=== PATIENT | female | born 1970 | race Caucasian/White ===

== ENCOUNTER 2023-10-21 18:59 | Emergency (ER) | payer BC, SELFPAY ==
[2023-10-21 19:22] VITALS: BP 161/110
[2023-10-21 20:08] VITALS: BP 131/89
[2023-10-21 20:13] LABS: Lactic Acid 2.2 mmol/L (0.7-2.0)
[2023-10-21] MEDS: NSS 1000 IV (20:30)
[2023-10-21 20:35] LABS: % Basophils 0.4 % (0-2); % Eosinophils 11.3 % (0-6); % Immature Granulocytes 0.3 % (0-0.5); % Lymphocytes 23.6 % (20.5-51.1); % Monocytes 8.4 % (1.7-9.3); Absolute Basophils 0.1 10^3/uL (0-0.2); Absolute Eosinophils 1.4 10^3/uL (0-0.7); Absolute Monocytes 1.1 10^3/uL (0.1-0.6); Absolute Neutrophils 7.1 10^3/uL (1.4-6.5); Hematocrit 46.9 % (37.0-47.0); Hemoglobin 15.9 g/dL (12.0-16.0); Mean Corp Hgb Conc. 33.9 g/dL (33.0-37.0); Mean Corpuscular Hgb 28.5 pg (27.0-31.0); Mean Corpuscular Volume 84.2 fL (81.0-99.0); Mean Platelet Volume 9.1 fL (7.4-10.4); Nucleated Red Blood Cells % 0 %; Platelet Count 270 10^3/uL (130-400); Red Blood Cell Count 5.57 10^6/uL (4.20-5.40); Red Cell Dist. Width 12.5 % (11.5-14.5); White Blood Cell Count 12.8 10^3/uL (4.8-10.8)
[2023-10-21 20:52] LABS: ALT (SGPT) 36 U/L (0-35); AST (SGOT) 33 U/L (14-36); Alkaline Phosphatase 123 U/L (38-126); Blood Urea Nitrogen 11 mg/dl (7-17); Calcium 9.5 mg/dl (8.4-10.2); Carbon Dioxide 22 mmol/L (22-30); Chloride 99 mmol/L (98-107); Glucose 189 mg/dl (70-99); Potassium 4.2 mmol/L (3.5-5.1); Sodium 133 mmol/L (135-145); Total Bilirubin 1.3 mg/dl (0.2-1.3); Total Protein 7.7 g/dl (6.3-8.2); eGFR > 60.00
[2023-10-21 21:00] VITALS: BP 143/116
[2023-10-21 22:00] VITALS: BP 126/63
[2023-10-21 22:19] LABS: Urine Albumin Negative (Neg - Trace); Urine Bilirubin Negative (Negative); Urine Character Clear (Clear); Urine Color Yellow; Urine Glucose Negative (Negative); Urine Ketone Negative (Negative); Urine Leukocyte 1+ (Negative); Urine Nitrite Negative (Negative); Urine Occult Blood Negative (Negative); Urine Specific Gravity 1.015 (<1.030); Urine Urobilinogen Negative (Neg - 1+)
[2023-10-21 22:25] LABS: Urine Squamous Cell >30 /LPF (Few)
[2023-10-21 22:26] LABS: Urine White Cell 40-50 /HPF (0-5)
[2023-10-21 22:27] LABS: Urine Bacteria Few (Negative); Urine Red Blood Cell None Seen /HPF (0-2); Urine Yeast Few (Negative)
[2023-10-21] MEDS: ZOFRAN 4 MG IV (23:18)
--- NOTE | 2023-10-21 23:21 | ED.GENMED ---
History of Present Illness
General
Chief Complaint: Abdominal Symptoms
Source: patient
Exam Limitations: none
Time Seen by Provider: 10/21/23 20:01
Nursing documentation reviewed up to this point in time: agreed with
Travel History
Have you had any contact with someone who has COVID-19?: No
Do you have any symptoms of coronavirus? Fever > 100 degrees, chills, cough, shortness of breath, sore throat, loss of taste or smell, muscle aches, or headache?: No
History of Present Illness
History of Present Illness:
53-year-old female with history of hypertension, hyperlipidemia, diabetes who presents to the emergency department for evaluation of diarrhea, nausea, vomiting, abdominal discomfort. Patient reports that for the past 3 weeks she has had issues with
unsettled stomach and significant gas. She has had scattered episodes of nausea and vomiting that she reports 3 total episodes over the past 3 weeks. She says that over the past 48 hours she has developed crampy abdominal pain and diarrhea. No
blood in the vomitus or diarrhea. She has not had any fevers or chills. She has not had any urinary symptoms. She says her blood sugars are reasonably well-controlled sugars today were roughly 160. She denies any prior surgical history.
Past History
Past History
ED Past Medical History: HTN, Hypercholesterolemia and NIDDM
ED Past Surgical History: Cardiac (Cardiac cath), Orthopedic and Urological (Lithotripsy)
Review of Systems
Review of Systems
All Other Systems: ROS reviewed and negative except as documented in HPI and ROS
Constitutional: Denies fever or chills
EENT: Denies sore throat or runny nose
Respiratory: Denies cough or trouble breathing
Cardiac: Denies chest pain
ABD/GI: Reports abdominal pain, nausea, vomiting and diarrhea; Denies constipated or bloody stools
: Denies dysuria, frequency, flank pain or bleeding
Musculoskeletal: Denies neck pain or back pain
Neurological: Denies headache, weakness or numbness
Phy Exam
Physical Exam
Physical Exam:
General: Awake, alert, oriented x3; no acute distress
Head: Normocephalic, atraumatic
Eyes: Conjunctiva normal, sclera anicteric
Throat: Airway intact, mucous membranes slightly dry
Neck: Trachea midline, supple without meningismus
Lungs: Clear to auscultation bilaterally, no wheezing, rales, rhonchi
Heart: Tachycardia with regular rhythm, no murmurs, gallops, or rubs
Abd: Soft, non distended, mildly tender across the upper abdomen
Back: No CVA tenderness
Neuro: Cranial nerves grossly intact, speech fluid
Skin: no rash
Extremities: No edema in extremities, equal pulses in all extremities
Scores
Heart Failure Risk
Heart Failure Risk Score: Not Applicable
Heart Score for Chest Pain Patients
STEMI patient?: Not applicable
Withdrawal Assessment of Alcohol
Withdrawal Assessment Completed?: Not applicable
Course
Orders/Labs/Results
Orders:
Orders
10/21/23 19:31
Electrocardiogram (*1) Urgent
Reason for Study: Tachycardia
Cardiology Consult: Mikhail Mccarthy
10/21/23 19:32
EKG- Treatment ONCE
10/21/23 19:49
Lactic Acid Urgent
10/21/23 20:05
0.9% Sodium Chloride 1000 ml [Nss] 1,000 ml IV BOLUS
10/21/23 20:27
Complete Blood Count/With Diff Urgent
Comprehensive Metabolic Panel Urgent
Lipase Urgent
Comment: ADD ON
10/21/23 21:32
CT Abd/pelvis W Iv Cont Urgent
Comment:
Reason For Exam: upper abd pain, N/V; now diarrhea
10/21/23 22:09
Urinalysis Reflex To Culture Urgent
Date Specimen was Collected: 10/21/23
Time Specimen was Collected: 19:32
Urine Microscopic Reflex Cult Urgent
Urine Culture Urgent
IRAIDA Source: U
Specimen Description:
Date Specimen was Collected: 10/21/23
Time Specimen was Collected: 19:32
10/21/23 23:08
Ondansetron Injectable [Zofran] 4 mg IV NOW STA
10/21/23 23:25
Add On- LAB Urgent
Tests Added?: lipase
Abnormal Lab Results
10/21/23 10/21/23 10/21/23
19:49 20:27 22:09
WBC 12.8 H 10^3/uL
(4.8-10.8)
RBC 5.57 H 10^6/uL
(4.20-5.40)
Absolute Neuts (auto) 7.1 H 10^3/uL
(1.4-6.5)
Absolute Monos (auto) 1.1 H 10^3/uL
(0.1-0.6)
Absolute Eos (auto) 1.4 H 10^3/uL
(0-0.7)
Eosinophils % 11.3 H %
(0-6)
Sodium 133 L mmol/L
(135-145)
Glucose 189 H mg/dl
(70-99)
Lactic Acid 2.2 H mmol/L
(0.7-2.0)
ALT 36 H U/L
(0-35)
Leukocyte Esterase Rfl 1+ A
(Negative)
Urine WBC (Reflex) 40-50 A /HPF
(0-5)
Urine Bacteria (Reflex) Few A
(Negative)
Urine Yeast Few A
(Negative)
10/21/23 20:27
10/21/23 20:27
Vital Signs
Initial and Last Documented VS:
Initial Vital Signs
Temp Pulse Resp BP Pulse Ox
37.2 C 129 20 161/110 95
10/21/23 19:22 10/21/23 19:22 10/21/23 19:22 10/21/23 19:22 10/21/23 19:22
Last Documented Vital Signs
Temp Pulse Resp BP Pulse Ox
37.2 C 88 17 126/63 88
10/21/23 19:22 10/22/23 00:15 10/22/23 00:15 10/21/23 22:00 10/22/23 00:15
MDM/Problems Addressed
Differential Diagnosis Includes:
Cholelithiasis, cholecystitis, enteritis, gastritis, gastroparesis, colitis
MDM/Problems Addressed:
53-year-old female with history as documented presents for subacute gas/vomiting x 3 weeks and acute diarrheal illness with abdominal cramping over the past 48 hours. She is hypertensive and tachycardic here. Physical exam as above. Plan to place
an IV check labs including a CBC and a CMP, lipase. Will check urinalysis. Will send for CT of the abdomen pelvis. Provide some IV fluids and antiemetic. Monitor closely reassess after the above.
Labs reviewed: CBC shows slight leukocytosis to 12.8. CMP no clinically significant abnormalities. Urinalysis shows some bacteria and pyuria but many squamous cells suggesting contamination�she has no urinary symptoms lower suspicion that she has
true infection. CT of the abdomen pelvis shows nonspecific air-fluid levels consistent with a gastroenteritis which certainly would fit clinically with her abdominal cramping and diarrhea over the past 48 hours. She is feeling bit better after
fluids and Zofran. She also has questionable sludge versus tiny gallstones in the gallbladder and I wonder if these might account for her subacute nausea and bloating. She has nothing to suggest cholecystitis and her liver function tests are
unremarkable here. I think at this point she is stable for discharge advised to drink plenty of fluids, Pepto-Bismol as needed for GI upset/diarrhea will prescribe Zofran as well. Will have her follow-up with general surgery and gastroenterology
as an outpatient. She feels comfortable with this plan. Spoke about return precautions all questions answered.
Chronic conditions affecting care:
Diabetes
Acute Exacerbation and/or Progression of Chronic Illness:
Acutely hypertensive�resolved but no emergent antihypertensive therapy indicated at present
*Radiology
Radiology exam reviewed: radiology read reviewed (IMPRESSION: Mildly limited by motion artifact. Air-fluid levels in the small bowel and colon, can be seen with gastroenteritis. No evidence for bowel obstruction or free air. No signs of jayesh
colitis. Appendix is normal. Subtle dependent density in the gallbladder suggests possibility of sludge)
*Pulse Oximetry
Patient hypoxic: no
*Critical Care Note
Total Time (30-74mins, 75-104mins- exclusive of procedures): Not Applicable
Data Reviewed
Review of Other/Old Records Reveals: Labs and Records
Source: patient
ED Attending Note
-
Portions of this chart may have been created with voice recognition software.� Occasional wrong word or��sound alike� substitutions may have occurred due to the inherent limitations of voice recognition software.
Discharge Plan
Departure
Discharge Problem:
Dehydration, Cholelithiasis, Gastroenteritis
Instructions: [place] Diet, Nausea and Vomiting, Adult (DC), Gallstones ED
Prescriptions:
New
ondansetron 4 mg tablet,disintegrating
4 mg PO TIDPRN PRN (Reason: nausea/vomiting) Qty: 20 0RF
No Action
metformin 500 mg Tablet
1,000 mg PO BID@0800,1700
aspirin [Jacey Low Dose Aspirin] 81 mg Tablet,Delayed Release (Dr/Ec)
81 mg PO DAILY
multivitamin Tablet
1 tab PO DAILY
cholecalciferol (vitamin D3) [Vitamin D3] 50 mcg (2,000 unit) Tablet
50 mcg PO DAILY
propafenone 150 mg Tablet
150 mg PO TID
Trulicity 1.5 mg/0.5 mL Pen Injector
1.5 mg SC MO
atorvastatin 80 mg tablet
80 mg PO DAILY
Hold Instructions: Resume on 07/25/23.
lisinopril 20 mg tablet
20 mg PO DAILY
Jardiance 25 mg tablet
25 mg PO DAILY
Coricidin HBP Max Izrx-Tmp-Ftm 10-325-200 mg Capsule
1 cap PO Q4HPRN PRN (Reason: COUGH)
Rx Instructions:
do not exceed 10 capsules in 24 hours
cefdinir 300 mg capsule
300 mg PO BID 5 Days Qty: 10 0RF
doxycycline hyclate 100 mg capsule
100 mg PO BID 5 Days Qty: 10 0RF
Referrals:
Jessica Pierce MD [Active] - Call in 1-3 days for appt (Gastroenterology)
Liam Judd MD [Active] - Call in 1-3 days for appt (General surgery)
Fani Lynn CRNP [Family Provider] - Follow up in 5-7 days
Activity Restrictions/Additional Instructions:
Thank you for visiting the Emergency Department at [facility].
1. Please schedule a follow up appointment as directed. Call first thing tomorrow morning to make an appointment.
2. If indicated, please take your medications as instructed and indicated on discharge paperwork.
3. If any of your symptoms do not improve, or persist, or become more severe within 6-12 hours, please return to the emergency department for further care.
4. Please return to the emergency department if you develop a headache, neck pain/stiffness, fever greater than 100.4F, chest pain, shortness of breath, persistent nausea, vomiting, slurred speech, difficulty walking, numbness/tingling, weakness,
signs of infection or any other symptoms that are worrisome to you.
Please call [phone] if you have any questions.
Interventions
Interventions:
*Risk Screen - Suicide Last Done: 10/21/23 19:22
*General Assessment Last Done: 10/21/23 19:22
*Neglect/Abuse Screening Last Done: 10/21/23 19:22
ED- Fall Risk Assessment Last Done: 10/21/23 19:22
*ED COVID-19 Vaccine History Last Done: 10/21/23 19:22
YB-Jysqwc-Wagmccxwtk Assessment Last Done: 10/21/23 21:04
[2023-10-22 00:05] LABS: Lipase 58 U/L (23-300)
[2023-10-22 00:49] VITALS: BP 132/77
== END 2023-10-22 00:55 | disposition home or self-care (01) ==
LOC: EMR 18:59
PROVIDERS: Student in an Organized Health Care Education/Training Program; EMERGENCY PHYSICIAN Emergency Medicine; FAMILY PHYSICIAN Nurse Practitioner
DX: E86.0 Dehydration (principal); K52.9 Noninfective gastroenteritis and colitis, unspecified; K80.20 Calculus of gallbladder without cholecystitis without obstruction; E11.9 Type 2 diabetes mellitus without complications; I10 Essential (primary) hypertension
CPT/HCPCS: 99285; 96374; 96361; 74177; 80053; 81003; 81015; 83605; 83690; 85025; 87086; 93005; Q9967

== ENCOUNTER → 2024-04-13 13:32 | Outpatient (REF) | payer BC, SELFPAY | LOC: HWWDC 13:32 | PROVIDERS: ATTENDING PHYSICIAN Nurse Practitioner | DX: Z12.31 Encounter for screening mammogram for malignant neoplasm of breast (principal) | CPT/HCPCS: 77063; 77067 ==

== ENCOUNTER → 2024-08-17 13:33 | Outpatient (REF) | payer BC, SELFPAY | LOC: RAD 13:33 | PROVIDERS: ATTENDING PHYSICIAN Nurse Practitioner Adult Health | DX: R79.89 Other specified abnormal findings of blood chemistry (principal) | CPT/HCPCS: 76536 ==

== ENCOUNTER → 2024-12-10 17:07 | Outpatient (REF) | payer BC, SELFPAY | LOC: RAD 17:07 | PROVIDERS: ATTENDING PHYSICIAN Nurse Practitioner Adult Health | DX: R74.8 Abnormal levels of other serum enzymes (principal); R74.01 Elevation of levels of liver transaminase levels | CPT/HCPCS: 76700 ==

== ENCOUNTER → 2025-04-15 18:14 | Outpatient (REF) | payer BC, SELFPAY | LOC: WDC 18:14 | PROVIDERS: ATTENDING PHYSICIAN Nurse Practitioner Adult Health | DX: Z12.31 Encounter for screening mammogram for malignant neoplasm of breast (principal) | CPT/HCPCS: 77063; 77067 ==

== ENCOUNTER → 2025-08-16 06:48 | Outpatient (REF) | payer BC, SELFPAY | LOC: HWRAD 06:48 | PROVIDERS: ATTENDING PHYSICIAN Nurse Practitioner Adult Health | DX: E04.2 Nontoxic multinodular goiter (principal) | CPT/HCPCS: 76536 ==